=== PATIENT | male | born 1945 | race Caucasian/White ===

== ENCOUNTER 2020-03-18 19:48 | Emergency (ER) | payer MEDICARE, OTHER ==
[~2020-03-18] VITALS: Ht 175.3 cm; Wt 108.9 kg
--- NOTE | 2020-03-18 20:00 | NUR ---
SPEEDY FROM HOME TO ER BED 6. AAOX4. NOT IN RESP DISTRESS, BREATHING EVEN AND UNLABORED. TRANSFERRED FROM [facility] TO BED WITH MIN ASSIST. PT WAS BROUGHT IN FOR A L LEG PAIN X 4 HOURS. PT HAD A FALL WHILE HE WAS GOING TO THE BATHROOM WITNESSED BY THE . DEINED HEAD TRAUMA NOR LOC. ROM ON L LEG IS LIMITED D/T PAIN. MD AT THE BEDSIDE FOR EVAL. AWITING ORDERS
--- NOTE | 2020-03-18 20:32 | NUR ---
XRAY AT BEDSIDE
[2020-03-18] MEDS ORDERED: ACETAMINOPHEN ES 500 MG TABLET ONE (21:19)
[2020-03-18 21:45] VITALS: BP 112/69
--- NOTE | 2020-03-18 21:45 | NUR ---
Patient discharged to home in stable condition. Written and verbal after care instructions given. Patient verbalizes understanding of instruction.
== END 2020-03-18 21:46 | disposition home or self-care (01) ==
LOC: ER 19:51
DX: M79.605 Pain in left leg (principal); F03.90 Unspecified dementia, unspecified severity, without behavioral disturbance, psychotic disturbance, mood disturbance, and anxiety; I10 Essential (primary) hypertension; E11.9 Type 2 diabetes mellitus without complications; Z95.0 Presence of cardiac pacemaker; Z95.1 Presence of aortocoronary bypass graft; Z95.5 Presence of coronary angioplasty implant and graft; W18.39XA Other fall on same level, initial encounter; Y93.89 Activity, other specified; Y92.89 Other specified places as the place of occurrence of the external cause; Y99.8 Other external cause status
CPT/HCPCS: 73502; 73552; 73560-TC; 73590-TC; 73610-TC